=== PATIENT | female | born 1950 | race Caucasian/White ===

== ENCOUNTER 2017-02-16 09:21 | Inpatient (IN) | payer MEDICARE, BC ==
[~2017-02-16] VITALS: Ht 167.6 cm; Wt 105.6 kg
[2017-02-16] VITALS (22 sets, daily range): BP systolic 103–1448; BP diastolic 46–95; PULSE 60–88; TEMP 97.2–97.8
[~2017-02-16 09:21] MED LIST: CAPTOPRIL100 MG PO; CARDIZEM 90MG T90 MG PO; GLUCOPHAGE500 MG/TAB PO; LEVAQUIN 5500 MG/TA1 PO; LEVOTHROID0.175 MG PO; LEVOXYL0.15 MG PO; VITAMINC1000TA PO; ZESTRIL 20MG TA20 MG PO
[2017-02-17] VITALS (7 sets, daily range): BP systolic 106–130; BP diastolic 42–61; PULSE 68–80; TEMP 97.4–98.5
[2017-02-18 03:27] VITALS: BP 135/59; PULSE 71; TEMP 97.8
[2017-02-18 08:10] VITALS: BP 117/60; PULSE 78; TEMP 97.4
[2017-02-18 11:08] VITALS: BP 113/65; PULSE 80; TEMP 97.6
[2017-02-18 15:34] VITALS: BP 96/49; PULSE 80; TEMP 98
[2017-02-18 19:42] VITALS: BP 123/58; PULSE 78; TEMP 98.4
[2017-02-19 00:12] VITALS: BP 120/58; PULSE 73; TEMP 98.2
[2017-02-19 05:16] LABS: MEAN CELL VOLUME 92 fl (80.0-100.0); MEAN CORPUSCULAR HGB CONC 32 g/dl (33.0-37.0); MEAN PLATELET VOLUME 10.4 fl (7.4-10.4); PLATELET COUNT 233 K/mm3 (130-400); RED BLOOD COUNT 3.97 M/mm3 (4.10-5.30); REDCELL DISTRIBUTION WIDTH-CV 14.6 % (11.5-14.5)
[2017-02-19 05:19] LABS: HEMATOCRIT 36.6 % (37.0-47.0); HEMOGLOBIN 11.7 g/dl (12.5-16.0); MEAN CORPUSCULAR HEMOGLOBIN 29 pg (27.0-31.0)
[2017-02-19 05:27] LABS: ALBUMIN 3.7 gm/dL (3.5-5.0); BILIRUBIN,TOTAL 0.5 mg/dL (0.0-1.0); CALCIUM 9.1 mg/dL (8.4-10.2); CREATININE, serum 0.83 mg/dL (0.52-1.25); POTASSIUM 4.6 mmol/L (3.4-5.0); TOTAL PROTEIN 7.6 gm/dL (6.4-8.2)
[2017-02-19 05:32] LABS: ANISOCYTOSIS 1+; BAND 2 % (0-10); BASOPHIL 2 % (0-2); EOSINOPHIL 12 % (0-4); LYMPHOCYTE 20 % (20.0-51.0); MICROCYTOSIS 1+; NEUTROPHILS 58 % (42.0-75.2); ROULEAUX 1+
[2017-02-19 05:33] LABS: POIKILOCYTOSIS 1+; STOMATOCYTE 1+
[2017-02-19 07:22] VITALS: BP 132/52; PULSE 84; TEMP 97.6
[2017-02-19 12:14] VITALS: BP 135/63; PULSE 67; TEMP 97.7
[2017-02-19 15:42] VITALS: BP 118/53; PULSE 80; TEMP 97.5
[2017-02-19 19:18] VITALS: BP 132/67; PULSE 86; TEMP 98.3
[2017-02-19 23:01] VITALS: BP 138/55; PULSE 66; TEMP 98.5
[2017-02-20 07:17] VITALS: BP 111/63; PULSE 81; TEMP 98.2
[2017-02-20 11:18] VITALS: BP 184/65; PULSE 94; TEMP 97.7
== END 2017-02-20 12:34 | disposition home or self-care (01) | DRG 200 ==
LOC: COL.RAD 09:21 → PEDS 17:02
PROVIDERS: Nurse Practitioner
PROC: 0B9C3ZX Drainage of Right Upper Lung Lobe, Percutaneous Approach, Diagnostic (ICD-10-PCS; principal; 2017-02-16)
PROC: 0W9930Z Drainage of Right Pleural Cavity with Drainage Device, Percutaneous Approach (ICD-10-PCS; 2017-02-16)
DX: J95.811 Postprocedural pneumothorax (principal); C34.11 Malignant neoplasm of upper lobe, right bronchus or lung; E03.9 Hypothyroidism, unspecified; E11.9 Type 2 diabetes mellitus without complications; I10 Essential (primary) hypertension; Z85.3 Personal history of malignant neoplasm of breast; Z79.84 Long term (current) use of oral hypoglycemic drugs; Z87.891 Personal history of nicotine dependence
CPT/HCPCS: OP; 99223-AI; 99231-AI; 99232-AI; 99239; G0378; G0379; J1170; J1815; J2250; J3010

== ENCOUNTER 2017-07-25 10:00 | Outpatient (CLI) | payer MEDICARE, BC ==
[~2017-07-25] VITALS: Ht 167.6 cm; Wt 103.8 kg
[2017-07-25] VITALS (18 sets, daily range): BP systolic 116–226; BP diastolic 58–102; PULSE 73–117; TEMP 97.6
[~2017-07-25 10:00] MED LIST changes: +ZESTRIL 10MG10 MG PO
== END 2017-07-25 14:07 | disposition home or self-care (01) ==
LOC: COL.RAD 10:00
DX: J18.1 Lobar pneumonia, unspecified organism (principal); R91.8 Other nonspecific abnormal finding of lung field; Z85.3 Personal history of malignant neoplasm of breast; Z85.118 Personal history of other malignant neoplasm of bronchus and lung; Z90.13 Acquired absence of bilateral breasts and nipples; Z98.890 Other specified postprocedural states
CPT/HCPCS: J3010

== ENCOUNTER → 2017-08-09 | Outpatient (CLI) | payer MEDICARE, BC | LOC: COL.PUL 12:56 | DX: C34.31 Malignant neoplasm of lower lobe, right bronchus or lung (principal); I10 Essential (primary) hypertension ==

== ENCOUNTER 2017-10-12 11:46 | Day surgery (SDC) | payer MEDICARE, BC ==
[~2017-10-12] VITALS: Ht 167.6 cm; Wt 105.8 kg
[2017-10-12 12:47] VITALS: BP 139/91; PULSE 89; TEMP 97.6
[2017-10-12 15:21] VITALS: BP 143/80; PULSE 105; TEMP 97.5
[2017-10-12 15:35] VITALS: BP 127/67; PULSE 93
[2017-10-12 15:50] VITALS: BP 138/89; PULSE 94
== END 2017-10-12 16:27 | disposition home or self-care (01) ==
LOC: SDCO 11:46
DX: C34.91 Malignant neoplasm of unspecified part of right bronchus or lung (principal); I10 Essential (primary) hypertension; E11.9 Type 2 diabetes mellitus without complications; E03.9 Hypothyroidism, unspecified; Z90.710 Acquired absence of both cervix and uterus; Z90.13 Acquired absence of bilateral breasts and nipples; Z85.3 Personal history of malignant neoplasm of breast; Z80.0 Family history of malignant neoplasm of digestive organs; Z82.3 Family history of stroke
CPT/HCPCS: C1788; J0690; J1644; J2704; J2765; J7030

== ENCOUNTER 2021-02-06 10:33 | Day surgery (SDC) | payer MEDICARE, BC ==
[~2021-02-06] VITALS: Ht 167.6 cm; Wt 96.2 kg
[2021-02-06] VITALS (8 sets, daily range): BP systolic 137–170; BP diastolic 53–78; PULSE 70–88; TEMP 97.4–98.8
[2021-02-06] MEDS ORDERED: LEVOXYL0.125 MG PO (11:05)
[2021-02-06] MEDS ORDERED: PEPCID40 MG PO (11:05)
[2021-02-06] MEDS ORDERED: EUTHYROX150 MCG PO (11:05)
[2021-02-06 11:27] LABS: HEMATOCRIT 38.8 % (37.0-47.0); HEMOGLOBIN 12.7 g/dl (12.5-16.0); MEAN CELL VOLUME 90 fl (80.0-100.0); MEAN CORPUSCULAR HEMOGLOBIN 30 pg (27.0-31.0); MEAN CORPUSCULAR HGB CONC 33 g/dl (33.0-37.0); MEAN PLATELET VOLUME 9.5 fl (7.4-10.4); PLATELET COUNT 218 K/mm3 (130-400); REDCELL DISTRIBUTION WIDTH-CV 13.5 % (11.5-14.5)
[2021-02-06 11:46] LABS: BILIRUBIN,TOTAL 0.4 mg/dL (0.2-1.2); CALCIUM 10.1 mg/dL (8.4-10.2); CREATININE, serum 0.99 mg/dL (0.57-1.11); POTASSIUM 4.1 mmol/L (3.5-4.5); TOTAL PROTEIN 9.1 gm/dL (6.2-8.1)
[2021-02-06 12:28] LABS: BAND 2 % (0-10); EOSINOPHIL 2 % (0-4)
[2021-02-06 12:29] LABS: PLATELET ESTIMATE NORMAL (NORMAL)
[2021-02-06 12:31] LABS: LYMPHOCYTE 11 % (20.0-51.0); NEUTROPHILS 75 % (42.0-75.2)
--- NOTE | 2021-02-06 16:10 | NUR ---
PATIENT IS A&O. VSS. NO C/O PAIN OR NAUSEA AT THIS TIME. ABD LAP SITES X5 ARE CD&I. ABD IS ROUND, SOFT AND WITH POSITIVE BOWL SOUNDS. HEAD TO TOE ASSESSMENT COMPLETE, SEE CHARTING. IV FLUIDS INFUSING INTO LEFT WRIST. ICE CHIPS AT BEDSIDE. PACU TO TRY TO LOCAL IN WAITING AREA. ORIENTED TO ROOM. CALL LIGHT IN REACH. NO OTHER NEEDS.
--- NOTE | 2021-02-06 17:45 | NUR ---
PATIENT AMBULATED TO BATHROOM, VOIDED, AND THEN ASSISTED INTO BEDSIDE CHAIR. SUPPER TRAY ORDERED. NO OTHER NEEDS.
[2021-02-07 03:25] VITALS: BP 135/63; PULSE 68; TEMP 98
--- NOTE | 2021-02-07 06:17 | NUR ---
pt ambulating to bathroom w/o assist, voiding, pain controlled with motrin, tolerating regular low fat diet w/o N/V, on baseline of 3L O2 per [place], sats upper 90s. lap sites x5 CDI, open to air.
[2021-02-07 07:26] VITALS: BP 133/59; PULSE 62; TEMP 97.6
[2021-02-07] MEDS ORDERED: NORCO 325 MG-51 TAB PO (08:09)
--- NOTE | 2021-02-07 09:50 | NUR ---
Patient is discharging home. Discharge instructions discussed with patient. No questions verbalized. INT discontinued. Explained needs to call Tuesday for follow up appointment. She packed up her belongings. Her is here to pick her up. She did not want to take her medications is here. Copies of discharge instructions sent with patient. Patient walked out via wheel chair with this nurse. Explained she has a prescription to pickup when she leaves, she said she did not think she wants it.
== END 2021-02-07 09:50 | disposition home or self-care (01) ==
LOC: SDCO 10:33 → SURG 16:10 → SDCO 02-07 09:50
PROVIDERS: Surgery
DX: K80.10 Calculus of gallbladder with chronic cholecystitis without obstruction (principal); I10 Essential (primary) hypertension; K21.9 Gastro-esophageal reflux disease without esophagitis; M19.90 Unspecified osteoarthritis, unspecified site; E03.9 Hypothyroidism, unspecified; E11.9 Type 2 diabetes mellitus without complications; Z79.84 Long term (current) use of oral hypoglycemic drugs; Z79.899 Other long term (current) drug therapy; Z01.818 Encounter for other preprocedural examination; Z86.718 Personal history of other venous thrombosis and embolism; Z87.891 Personal history of nicotine dependence; Z85.118 Personal history of other malignant neoplasm of bronchus and lung; Z85.3 Personal history of malignant neoplasm of breast; Z79.890 Hormone replacement therapy
CPT/HCPCS: OP; A9284; J0690; J1170; J2370; J2405; J2550; J2704; J3010; J7050; J7120